=== PATIENT | male | born 1940 | race Caucasian/White ===

== ENCOUNTER 2018-11-14 08:34 | Day surgery (SDC) | payer OTHER ==
[2018-11-13 08:52] VITALS: BMI 31.3
[2018-11-14] MEDS ORDERED: MIDAZOLAM HCL 2 MG/2 ML SINGLE DOSE VIAL ONE ×2 (10:10)
[2018-11-14] MEDS ORDERED: ceFAZolin SODIUM 1 GM VIAL IVPB ONE (10:11)
[2018-11-14 11:25] VITALS: TEMP 97.9
[2018-11-14 11:59] VITALS: BP 137/68; PULSE 61
--- NOTE | 2018-11-14 12:03 | OP ---
Operative Note - Note: Operative Date: 11/14/18 Pre-Operative Diagnosis: Right ureteral stone Operation: Right ESWL Findings: right 9 mm distal ureteral stone Anesthesia: General Operative Report Dictated: Yes
[2018-11-14] MEDS ORDERED: ELECTROLYTE-148 SOLN 1,000 ML IV SCH (12:15)
--- NOTE | 2018-11-14 13:13 | OP ---
DATE OF OPERATION: 11/14/2018 PREOPERATIVE DIAGNOSIS: Right ureteral calculus. POSTOPERATIVE DIAGNOSIS: Right ureteral calculus. PROCEDURE: Right lithotripsy. HISTORY: This is a very pleasant 77-year-old gentleman with a history of right ureteral stone and flank pain. Preoperative imaging revealed hydronephrosis. After discussing treatment options, patient elected to undergo the above-stated procedure. Risks and benefits of treatment and alternative treatments discussed in detail. All questions were answered. BRIEF OPERATIVE NOTE: The patient was brought in to the operative suite, placed in supine position. The stone was visualized using fluoroscopy. At this time, intravenous Ancef was given. Approximately 3000 shocks were delivered in electromagnetic fashion. The stone appeared to fragment radiographically. The patient tolerated the procedure well and was brought to recovery room in stable and satisfactory condition. SRINIVASA BECERRA M.D. [id number]
== END 2018-11-14 11:55 | disposition home or self-care (01) ==
LOC: JASU-SURG 08:34
PROVIDERS: ATTEND Urology
PROC: 0TF6XZZ Fragmentation in Right Ureter, External Approach (ICD-10-PCS; principal; 2018-11-14 09:45)
DX: N20.1 Calculus of ureter (principal); J44.9 Chronic obstructive pulmonary disease, unspecified